=== PATIENT | male | born 1995 | race African-American/Black ===

== ENCOUNTER 2022-09-15 12:06 | Emergency (ER) | payer OTHER ==
[~2022-09-15] VITALS: Ht 177.8 cm; Wt 106.8 kg
[2022-09-15] MEDS ORDERED: AMLO1TAB24 PO (12:14)
[2022-09-15 16:21] VITALS: BP 143/70
[2022-09-15] MEDS ORDERED: CAPS0.022 TOP (17:29)
== END 2022-09-15 17:39 | disposition home or self-care (01) ==
LOC: M ED 12:06
DX: M25.562 Pain in left knee (principal); I10 Essential (primary) hypertension

== ENCOUNTER 2023-11-02 21:35 | Emergency (ER) | payer OTHER ==
[~2023-11-02 21:35] MED LIST: AMLO1TAB24 PO; CAPS0.022 TOP
== END 2023-11-03 06:44 | disposition left against medical advice (07) ==
LOC: M ED 21:35
DX: Z53.21 Procedure and treatment not carried out due to patient leaving prior to being seen by health care provider (principal)

== ENCOUNTER 2023-11-22 02:04 | Emergency (ER) | payer OTHER ==
[~2023-11-22] VITALS: Ht 180.3 cm; Wt 121.7 kg
[2023-11-22 02:57] LABS: HEMATOCRIT 45.9 % (42.0-52.0); HEMOGLOBIN 15.5 g/dl (13.5-17.5); MEAN CORPUSCULAR VOLUME 89.1 fl (80.0-96.0); RED BLOOD COUNT 5.15 10^6/uL (4.30-6.10); WHITE BLOOD COUNT 17.6 10^3/uL (4.0-10.0)
[2023-11-22 02:58] LABS: BASO % 0.2 % (0.0-1.0); EOS # 0.1 10^3/uL (0.0-0.5); EOS % 0.3 % (0.0-3.0); LYMPH # 0.7 10^3/uL (1.5-5.0); LYMPH % 3.7 % (24.0-44.0); MEAN CORPUSCULAR HEMOGLOBIN 30.1 pg (27.0-33.0); MEAN CORPUSCULAR HGB CONC 33.8 g/dl (32.0-36.5); MONO # 1.3 10^3/uL (0.0-0.8); MONO % 7.6 % (2.0-8.0); NEUTROPHILS # 15.5 10^3/uL (1.5-8.5); NEUTROPHILS % 87.7 % (36.0-66.0); PLATELET COUNT, AUTOMATED 180 10^3/uL (150-450)
[2023-11-22] MEDS: ACETAMINOPHEN TAB 650MG DOSE (2X325MG) PO ONE (03:17)
[2023-11-22] MEDS: NS 1,000 ML IV ONE (03:17)
[2023-11-22] MEDS: ONDANSETRON 4MG 2ML VIAL IV ONE (03:17)
[2023-11-22 03:19] LABS: ALKALINE PHOSPHATASE 47 U/L (46-116); ALT/SGPT 37 U/L (7.0-40); AST/SGOT 29 U/L (<34); BILIRUBIN,TOTAL 1.5 MG/DL (0.3-1.2); BLOOD UREA NITROGEN 13 MG/DL (9-23); CALCIUM LEVEL 9.6 MG/DL (8.5-10.1); CARBON DIOXIDE LEVEL 25 MMOL/L (20-31); CHLORIDE LEVEL 101 MMOL/L (98-107); CREATININE FOR GFR 1.32 MG/DL (0.70-1.30); GLOMERULAR FILTRATION RATE > 60.0 (>60); GLUCOSE, FASTING 115 MG/DL (60-100); POTASSIUM SERUM 3.6 MMOL/L (3.5-5.1); SODIUM LEVEL 133 MMOL/L (136-145); TOTAL PROTEIN 7.3 G/DL (5.7-8.2)
[2023-11-22] MEDS ORDERED: ISOVUE-370 76% 100ML VIAL As Ordered ONE (04:34)
[2023-11-22] MEDS: IBUPROFEN 600MG TAB PO ONE (04:54)
[2023-11-22] MEDS: DOXYCYCLINE HYCLATE 100MG TABLET PO ONE (05:39)
[2023-11-22] MEDS: cefTRIAXone SOD 1 GM in D5W MINI-BAG PLUS 50 ML IV ONE (05:39)
[2023-11-22] MEDS ORDERED: DOXY100C82 PO (06:23)
[2023-11-22 06:49] VITALS: BP 128/69; TEMP 99.8; O2SAT 98
[2023-11-23] MEDS ORDERED: LEVO1TAB40 PO (20:53)
[2023-11-23] MEDS ORDERED: PROT1TAB2 PO (20:53)
[2023-11-23] MEDS ORDERED: PROM25TA12 PO (20:53)
== END 2023-11-22 06:51 | disposition home or self-care (01) ==
LOC: M ED 02:04 → EDBD 02:04 → M ED 06:51
DX: J18.1 Lobar pneumonia, unspecified organism (principal); Z20.9 Contact with and (suspected) exposure to unspecified communicable disease; I10 Essential (primary) hypertension; Z79.899 Other long term (current) drug therapy
CPT/HCPCS: 71045; 71260; 74177; 80053; 83605; 85025; 87040; 87486; 87581; 87633; 87798; 87880; 96361; 96365; 96375; 99284; J0696; J2405; Q9967

== ENCOUNTER 2023-11-23 11:35 | Emergency (ER) | payer OTHER ==
[~2023-11-23] VITALS: Ht 180.3 cm; Wt 122.9 kg
[~2023-11-23 11:35] MED LIST changes: +DOXY100C82 PO
[2023-11-23] MEDS: ACETAMINOPHEN 500 MG TAB PO ONE (14:22)
[2023-11-23] MEDS ORDERED: VANCOMYCIN HCL 2,000 MG in D5W 500 ML IV ONE (15:30)
[2023-11-23 15:57] LABS: HEMATOCRIT 44.9 % (42.0-52.0); HEMOGLOBIN 15.1 g/dl (13.5-17.5); MEAN CORPUSCULAR HEMOGLOBIN 30.2 pg (27.0-33.0); MEAN CORPUSCULAR HGB CONC 33.6 g/dl (32.0-36.5); MEAN CORPUSCULAR VOLUME 89.8 fl (80.0-96.0); PLATELET COUNT, AUTOMATED 141 10^3/uL (150-450); WHITE BLOOD COUNT 11.2 10^3/uL (4.0-10.0)
[2023-11-23 16:26] LABS: ALBUMIN 3.3 G/DL (3.2-5.2); ALKALINE PHOSPHATASE 43 U/L (46-116); ALT/SGPT 31 U/L (7.0-40); AST/SGOT 28 U/L (<34); BILIRUBIN,DIRECT 0.3 MG/DL (<0.4); BILIRUBIN,TOTAL 0.7 MG/DL (0.3-1.2); BLOOD UREA NITROGEN 10 MG/DL (9-23); CALCIUM LEVEL 9.2 MG/DL (8.5-10.1); CARBON DIOXIDE LEVEL 27 MMOL/L (20-31); CHLORIDE LEVEL 98 MMOL/L (98-107); CREATININE FOR GFR 1.13 MG/DL (0.70-1.30); GLOMERULAR FILTRATION RATE > 60.0 (>60); GLUCOSE, FASTING 118 MG/DL (60-100); POTASSIUM SERUM 3.8 MMOL/L (3.5-5.1); SODIUM LEVEL 132 MMOL/L (136-145); TOTAL PROTEIN 7.3 G/DL (5.7-8.2)
[2023-11-23 16:29] LABS: EOSINOPHILS 1 % (0-3); MONOCYTES 6 % (0-5); NEUTROPHILS 82 % (28-66); PLATELET ESTIMATE NORMAL (NORMAL)
[2023-11-23] MEDS: ONDANSETRON 4MG 2ML VIAL IV ONE (16:48)
[2023-11-23] MEDS: NS 3,000 ML in IV 1 EA IV ONE (16:48)
[2023-11-23] MEDS: PANTOPRAZOLE 40MG VIAL IV ONE (16:48)
[2023-11-23] MEDS: PIPERACILLIN/TAZOBACTAM SOD 3.375 GM in D5W MINI-BAG PLUS 50 ML IV ONE (16:48)
[2023-11-23] MEDS: VANCOMYCIN HCL 1,000 MG, VIAL MATE ADAPTER 1 EACH in D5W 250 ML IV ONE ×2 (17:30→17:59)
[2023-11-23] MEDS: ONDANSETRON 4MG ORAL DISINTEGRATING TAB SL ONE (19:15)
[2023-11-23] MEDS: ACETAMINOPHEN TAB 650MG DOSE (2X325MG) PO ONE (19:36)
[2023-11-23 20:07] LABS: CK-MB VALUE MASS < 1.0 NG/ML (<3.6)
[2023-11-23 20:08] LABS: CPK CREATINE PHOSPHOKINASE 672 U/L (46-171); MB/CK RELATIVE INDEX 0.14 (< OR =4)
[2023-11-23] MEDS ORDERED: LEVO1TAB40 PO (20:53)
[2023-11-23] MEDS ORDERED: PROM25TA12 PO (20:53)
[2023-11-23] MEDS ORDERED: PROT1TAB2 PO (20:53)
[2023-11-23 21:12] LABS: CK-MB VALUE MASS < 1.0 NG/ML (<3.6)
[2023-11-23 21:14] LABS: CPK CREATINE PHOSPHOKINASE 629 U/L (46-171); MB/CK RELATIVE INDEX 0.15 (< OR =4)
[2023-11-23 21:33] VITALS: O2SAT 97
[2023-11-23] MEDS: KETOROLAC 30 MG/ML 1ML VIAL IV ONE (22:21)
[2023-11-23 22:52] VITALS: BP 138/88; TEMP 100.9
== END 2023-11-23 22:54 | disposition home or self-care (01) ==
LOC: M ED 13:46
DX: J18.1 Lobar pneumonia, unspecified organism (principal); R09.1 Pleurisy; Z79.899 Other long term (current) drug therapy
CPT/HCPCS: 71045; 80048; 80076; 82550; 82553; 83605; 84484; 85025; 87040; 87070; 87205; 93005; 96365; 96367; 96375; 99284; C9113; J1885; J2405; J2543; J3370

== ENCOUNTER 2025-06-04 05:55 | Emergency (ER) | payer OTHER ==
[~2025-06-04] VITALS: Ht 177.8 cm; Wt 105.4 kg
[~2025-06-04 05:55] MED LIST changes: +DOXY-442 PO; -DOXY100C82 PO; +LEVO1TAB40 PO; +PROM25TA12 PO; +PROT1TAB2 PO
[2025-06-04] MEDS ORDERED: LOSA25TA13 (06:02)
[2025-06-04] MEDS: KETOROLAC 30 MG/ML 1 ML VIAL IV ONE (07:39)
[2025-06-04 07:47] LABS: BASO # 0.0 10^3/uL (0.0-0.2); BASO % 0.3 % (0.0-1.0); EOS # 0.0 10^3/uL (0.0-0.5); EOS % 0.3 % (0.0-3.0); LYMPH # 1.4 10^3/uL (1.5-5.0); LYMPH % 20.8 % (24.0-44.0); MONO # 0.5 10^3/uL (0.0-0.8); MONO % 6.7 % (2.0-8.0); NEUTROPHILS # 4.8 10^3/uL (1.5-8.5); NEUTROPHILS % 71.5 % (36.0-66.0); PLATELET COUNT, AUTOMATED 223 10^3/uL (150-450)
[2025-06-04 08:10] LABS: ERYTHROCYTE SEDIMENTATION RATE 11 mm/hr (0-15)
[2025-06-04 08:11] LABS: ALT/SGPT 36 U/L (7.0-40); AST/SGOT 44 U/L (<34); C REACTIVE PROTEIN QUANTITATIV < 0.50 MG/DL (<1.0); CALCIUM LEVEL 8.8 MG/DL (8.5-10.1); CARBON DIOXIDE LEVEL 28 MMOL/L (20-31); CHLORIDE LEVEL 104 MMOL/L (98-107); CREATININE FOR GFR 1.04 MG/DL (0.70-1.30); GLOMERULAR FILTRATION RATE > 90.0 (>60); POTASSIUM SERUM 4.3 MMOL/L (3.5-5.1); SODIUM LEVEL 141 MMOL/L (136-145)
[2025-06-04] MEDS ORDERED: KETO-204 PO (09:05)
[2025-06-04 09:14] VITALS: BP 146/92; TEMP 97; O2SAT 97
[2025-06-04] MEDS: IBUPROFEN 800 MG TAB PO ONE (09:21)
== END 2025-06-04 09:26 | disposition home or self-care (01) ==
LOC: M ED 05:55
DX: M25.562 Pain in left knee (principal); I10 Essential (primary) hypertension
CPT/HCPCS: 73564; 80053; 83605; 84145; 84550; 85025; 85652; 86140; 96374; 99284; J1885

== ENCOUNTER 2025-07-04 05:16 | Emergency (ER) | payer OTHER ==
[~2025-07-04] VITALS: Ht 182.9 cm; Wt 105.5 kg
[~2025-07-04 05:16] MED LIST changes: +KETO-204 PO; +LOSA25TA13
[2025-07-04] MEDS: NS (Normal Saline) 0.9% 1,000 ML IV ONE (06:21)
[2025-07-04] MEDS: KETOROLAC 30 MG/ML 1 ML VIAL IV ONE (06:22)
[2025-07-04] MEDS: ONDANSETRON 4MG/2ML VIAL IV ONE (06:22)
[2025-07-04 06:24] LABS: BASO # 0.0 10^3/uL (0.0-0.2); BASO % 0.4 % (0.0-1.0); EOS # 0.0 10^3/uL (0.0-0.5); EOS % 0.4 % (0.0-3.0); LYMPH # 2.1 10^3/uL (1.5-5.0); LYMPH % 25.9 % (24.0-44.0); MONO # 0.6 10^3/uL (0.0-0.8); MONO % 7.2 % (2.0-8.0); NEUTROPHILS # 5.2 10^3/uL (1.5-8.5); NEUTROPHILS % 65.7 % (36.0-66.0); PLATELET COUNT, AUTOMATED 232 10^3/uL (150-450)
[2025-07-04 06:50] LABS: ALT/SGPT 35 U/L (7.0-40); AST/SGOT 28 U/L (<34); CALCIUM LEVEL 9.1 MG/DL (8.5-10.1); CARBON DIOXIDE LEVEL 27 MMOL/L (20-31); CHLORIDE LEVEL 103 MMOL/L (98-107); CREATININE FOR GFR 1.01 MG/DL (0.70-1.30); GLOMERULAR FILTRATION RATE > 90.0 (>60); POTASSIUM SERUM 3.9 MMOL/L (3.5-5.1); SODIUM LEVEL 140 MMOL/L (136-145)
[2025-07-04 07:00] VITALS: BP 139/67; TEMP 97.4; O2SAT 98
[2025-07-04] MEDS ORDERED: ONDA-83 PO (07:01)
== END 2025-07-04 07:17 | disposition home or self-care (01) ==
LOC: M ED 05:16
DX: R11.2 Nausea with vomiting, unspecified (principal); B34.9 Viral infection, unspecified; I11.9 Hypertensive heart disease without heart failure; Z79.899 Other long term (current) drug therapy
CPT/HCPCS: 71046; 80048; 80076; 83690; 85025; 96374; 96375; 99284; J1885; J2405

== ENCOUNTER 2025-08-01 07:44 | Emergency (ER) | payer OTHER ==
[~2025-08-01] VITALS: Ht 188 cm; Wt 100.0 kg
[~2025-08-01 07:44] MED LIST changes: +ONDA-83 PO
[2025-08-01] MEDS: ALBUTEROL 90 MCG/ACT 8 GM HFA INHALER INH ONE (08:56)
[2025-08-01 09:03] LABS: BASO # 0.0 10^3/uL (0.0-0.2); BASO % 0.4 % (0.0-1.0); EOS # 0.1 10^3/uL (0.0-0.5); EOS % 0.8 % (0.0-3.0); LYMPH # 1.4 10^3/uL (1.5-5.0); LYMPH % 18.4 % (24.0-44.0); MONO # 0.6 10^3/uL (0.0-0.8); MONO % 7.4 % (2.0-8.0); NEUTROPHILS # 5.6 10^3/uL (1.5-8.5); NEUTROPHILS % 72.6 % (36.0-66.0); PLATELET COUNT, AUTOMATED 231 10^3/uL (150-450)
[2025-08-01 09:34] LABS: ALT/SGPT 45 U/L (7.0-40); AST/SGOT 32 U/L (<34); CALCIUM LEVEL 9.4 MG/DL (8.5-10.1); CARBON DIOXIDE LEVEL 28 MMOL/L (20-31); CHLORIDE LEVEL 105 MMOL/L (98-107); CREATININE FOR GFR 1.12 MG/DL (0.70-1.30); GLOMERULAR FILTRATION RATE > 90.0 (>60); POTASSIUM SERUM 4.4 MMOL/L (3.5-5.1); SODIUM LEVEL 142 MMOL/L (136-145)
[2025-08-01 10:07] LABS: HIV 1&2 SCREEN NEGATIVE (NEGATIVE)
[2025-08-01 10:14] LABS: Trichomonas vaginalis (AMP) NOT DETECTED (NEGATIVE)
[2025-08-01 10:38] LABS: GC DNA AMPLIFICATION NEGATIVE (NEGATIVE)
[2025-08-01] MEDS ORDERED: ONDA-282 PO (12:02)
[2025-08-01 12:11] VITALS: BP 141/87; TEMP 98; O2SAT 99
== END 2025-08-01 12:11 | disposition home or self-care (01) ==
LOC: M ED 07:44
DX: R11.2 Nausea with vomiting, unspecified (principal); B34.8 Other viral infections of unspecified site; Z11.3 Encounter for screening for infections with a predominantly sexual mode of transmission; I10 Essential (primary) hypertension; Z79.899 Other long term (current) drug therapy